=== PATIENT | male | born 1985 ===

== ENCOUNTER 2023-03-15 18:36 | Emergency (ER) | payer MEDICAID ==
[~2023-03-15] VITALS: Ht 182.9 cm; Wt 99.2 kg
[2023-03-15 18:50] VITALS: BP 153/98
== END 2023-03-15 21:07 | disposition left against medical advice (07) ==
LOC: ER 18:37
DX: F10.10 Alcohol abuse, uncomplicated (principal); Z53.21 Procedure and treatment not carried out due to patient leaving prior to being seen by health care provider; Y90.9 Presence of alcohol in blood, level not specified
CPT/HCPCS: 99281